=== PATIENT | female | born 1970 | race Caucasian/White ===

== ENCOUNTER 2021-06-26 12:13 | Emergency (ER) | payer OTHER ==
[~2021-06-26] VITALS: Ht 157.5 cm; Wt 90.7 kg
--- NOTE | ~2021-06-26 | EMS ---
[address] [address] EMS Patient Care Report Name: KO CARTER Room #: DEP ROCAEL Romero#: [id number] Admission: 06/26/21 Attend Phys: Discharge: 06/26/21 Date of : 74 Report #: [id number] THIS REPORT FOR: //name// Report Transmitted: 06/26/2021 23:02 EMS Care Summary [facility] MED-ACT Incident [id number] @ 06/26/2021 11:37 Incident Location [address] [place] [address] Patient KO CARTER Female, 51 Years 1970 Patient Address [address] [place] [address] Patient History Anxiety, Patient Allergies Amoxicillin, Patient Medications Wellbutrin, Lexapro, Chief Complaint chest pain that worsens w/ respiration Disposition Transported No Lights/[place] Dis[place] Reason Chest Pain (Non-Traumatic) Transported To [facility] Narrative dispatch: medic [id number] dispatched to a an assisted living facility for a report of a staff member suffering from chest pain. medic [id number] immediately responded to the scene without delay. [address] [address] EMS Patient Care Report Name: KO CARTER [facility] [id number] Admission: 06/26/21 Attend Phys: Discharge: 06/26/21 Date of : 74 Report #: [id number] chief complaint: upon arrival to the scene ems enters the facility to find a 51 y/o female pt seated upright in a chair. pt alert, answering questions. pt complains of chest pain. history of present illness: pt states pain began on her drive to work approximately 2 hours prior. pt states pain continually worsened prompting her to summoned ems. pt describes the pain as sharp and rates it 10/10. pt states pain begins midclavicular at approximately the 5th intercostal space and radiates upward in to her neck and down her left arm. pt states pain worsens with respiration and movement. pt denies any trauma or injury to area. assessment: als assessment performed, findings noted within report. rendered treatment: assessment, vital signs, ekg, 12 lead ekg, vascular access, 50mcg fentanyl, transport. 324mg asa administered by staff prior to ems arrival. transport: pt requests transport to a [facility]. pt stood with assistance and sat on stretcher. stretcher transferred to ambulance, lifted, and secured. pt continuously monitored through out transport for changes in condition. upon arrival to the receiving facility pt self transferred to er bed. verbal report given to attending staff and transfer of care complete. Initial Vitals @11:51P: 82, @11:57P: 78, @12:02P: 81,SpO2: 92, @11:53P: 87, @11:47P: 91,SpO2: 95, @12:06P: 77,SpO2: 94, @11:51P: 81,R: 20,BP: 121/73,Pain: 10/10,GCS: 15,SpO2: 94,Revised Trauma: 12,[place] Suspected: false @12:05P: 92,R: 20,BP: 119/89,Pain: 10/10,GCS: 15,SpO2: 93,Revised Trauma: 12,[place] Suspected: false @11:48P: 92,R: 20,BP: 123/102,Pain: 10/10,GCS: 15,Temp: 97.8F,SpO2: 95,Revised Trauma: 12, Impression Chest pain on breathing Procedures @11:55 Fentanyl - 50 Micrograms (mcg) - Intravenous (IV) Response: Unchanged @12:02 Surgical Mask on Patient Response: Unchanged @PTAAspirin - 324 Milligrams (mg) - Oral Response: Unchanged @11:53 IV Therapy - Saline Lock 10cc (20 ga) Site: Hand-Left Response: [facility] [address] [place] [address] EMS Patient Care Report Name: KO CARTER Room #: DEP ROCAEL Romero#: [id number] Admission: 06/26/21 Attend Phys: Discharge: 06/26/21 Date of : 74 Report #: [id number] UnchangedSucceeded @11:51 12-Lead ECG Response: UnchangedSucceeded 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,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 - 324 Milligrams (mg) - Oral,Response: Unchanged 11:35,Call Received 11:35,Psap Call 11:37,Dispatched 11:37,En Route 11:42,On Scene 11:44,At Patient 11:47,BP: / M,PULSE: 91,RR: R,SPO2: 95 Ox,ETCO2: ,BG: ,PAIN: ,GCS: , 11:48,BP: 123/102 M,PULSE: 92,RR: 20 R,SPO2: 95 Ox,ETCO2: ,BG: ,PAIN: 10,GCS: 15, 11:51,BP: 121/73 M,PULSE: 81,RR: 20 R,SPO2: 94 Ox,ETCO2: ,BG: ,PAIN: 10,GCS: 15, 11:51,12-Lead ECG,Response: UnchangedSucceeded, 11:51,BP: / M,PULSE: 82,RR: R,SPO2: Ox,ETCO2: ,BG: ,PAIN: ,GCS: , 11:53,IV Therapy - Saline Lock 10cc 20 ga Site: Hand-Left,Response: UnchangedSucceeded, 11:53,BP: / M,PULSE: 87,RR: R,SPO2: Ox,ETCO2: ,BG: ,PAIN: ,GCS: , 11:55,Fentanyl - 50 Micrograms (mcg) - Intravenous (IV),Response: Unchanged 11:57,BP: / M,PULSE: 78,RR: R,SPO2: Ox,ETCO2: ,BG: ,PAIN: ,GCS: , 11:57,Depart Scene 12:02,Surgical Mask on Patient,Response: Unchanged 12:02,BP: / M,PULSE: 81,RR: R,SPO2: 92 Ox,ETCO2: ,BG: ,PAIN: ,GCS: , 12:05,BP: 119/89 M,PULSE: 92,RR: 20 R,SPO2: 93 Ox,ETCO2: ,BG: ,PAIN: 10,GCS: 15, 12:06,BP: / M,PULSE: 77,RR: R,SPO2: 94 Ox,ETCO2: ,BG: ,PAIN: ,GCS: , 12:08,At Destination 12:23,Call Closed Disclaimer v1.1 Copyright 2020 [employer] This EMS Care Summary contains data elements from the applicable legal record (which may be displayed differently). It is designed to provide pertinent information for the following purposes: continuity of care, clinical quality, and state data reporting. The complete legal record is available to ED staff and administrators of the receiving hospital in ES's Patient Tracker. All data is provided "as is."
--- NOTE | ~2021-06-26 | EMS ---
[address] [address] EMS Patient Care Report Name: KO CARTER Room #: DEP ROCAEL Romero#: [id number] Admission: 06/26/21 Attend Phys: Discharge: 06/26/21 Date of : 74 Report #: [id number] THIS REPORT FOR: //name// Report Transmitted: 06/26/2021 21:58 EMS Care Summary [facility] MED-ACT Incident [id number] @ 06/26/2021 11:37 Incident Location [address] [place] [address] Patient KO CARTER Female, 51 Years 1970 Patient Address [address] [place], [place] [id number] Patient History Anxiety, Patient Allergies Amoxicillin, Patient Medications Wellbutrin, Lexapro, Chief Complaint chest pain that worsens w/ respiration Disposition Transported No Lights/[place] Dispatch Reason Chest Pain (Non-Traumatic) Transported To [facility] Narrative dispatch: medic [id number] dispatched to a an assisted living facility for a report of a staff member suffering from chest pain. medic 1134 immediately responded to the scene without delay. [address] [address] EMS Patient Care Report Name: KO CARTER Room #: [facility]P [facility] [id number] Admission: 06/26/21 Attend Phys: Discharge: 06/26/21 Date of : 74 Report #: [id number] chief complaint: upon arrival to the scene ems enters the facility to find a 51 y/o female pt seated upright in a chair. pt alert, answering questions. pt complains of chest pain. history of present illness: pt states pain began on her drive to work approximately 2 hours prior. pt states pain continually worsened prompting her to summoned ems. pt describes the pain as sharp and rates it 10/10. pt states pain begins midclavicular at approximately the 5th intercostal space and radiates upward in to her neck and down her left arm. pt states pain worsens with respiration and movement. pt denies any trauma or injury to area. assessment: als assessment performed, findings noted within report. rendered treatment: assessment, vital signs, ekg, 12 lead ekg, vascular access, 50mcg fentanyl, transport. 324mg asa administered by staff prior to ems arrival. transport: pt requests transport to a [facility]. pt stood with assistance and sat on stretcher. stretcher transferred to ambulance, lifted, and secured. pt continuously monitored through out transport for changes in condition. upon arrival to the receiving facility pt self transferred to er bed. verbal report given to attending staff and transfer of care complete. Initial Vitals @11:51P: 82, @11:57P: 78, @12:02P: 81,SpO2: 92, @11:53P: 87, @11:47P: 91,SpO2: 95, @12:06P: 77,SpO2: 94, @11:51P: 81,R: 20,BP: 121/73,Pain: 10/10,GCS: 15,SpO2: 94,Revised Trauma: 12,[place] Suspected: false @12:05P: 92,R: 20,BP: 119/89,Pain: 10/10,GCS: 15,SpO2: 93,Revised Trauma: 12,[place] Suspected: false @11:48P: 92,R: 20,BP: 123/102,Pain: 10/10,GCS: 15,Temp: 97.8F,SpO2: 95,Revised Trauma: 12, Impression Chest pain on breathing Procedures @11:55 Fentanyl - 50 Micrograms (mcg) - Intravenous (IV) Response: Unchanged @12:02 Surgical Mask on Patient Response: Unchanged @PTAAspirin - 324 Milligrams (mg) - Oral Response: Unchanged @11:53 IV Therapy - Saline Lock 10cc (20 ga) Site: Hand-Left Response: [facility] [address] [place] [address] EMS Patient Care Report Name: KO CARTER Room #: DEP ROCAEL Romero#: [id number] Admission: 06/26/21 Attend Phys: Discharge: 06/26/21 Date of : 74 Report #: [id number] UnchangedSucceeded @11:51 12-Lead ECG Response: UnchangedSucceeded Timeline 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,Aspirin - 324 Milligrams (mg) - Oral,Response: Unchanged 11:35,Call Received 11:35,Psap Call 11:37,Dispatched 11:37,En Route 11:42,On Scene 11:44,At Patient 11:47,BP: / M,PULSE: 91,RR: R,SPO2: 95 Ox,ETCO2: ,BG: ,PAIN: ,GCS: , 11:48,BP: 123/102 M,PULSE: 92,RR: 20 R,SPO2: 95 Ox,ETCO2: ,BG: ,PAIN: 10,GCS: 15, 11:51,BP: 121/73 M,PULSE: 81,RR: 20 R,SPO2: 94 Ox,ETCO2: ,BG: ,PAIN: 10,GCS: 15, 11:51,12-Lead ECG,Response: UnchangedSucceeded, 11:51,BP: / M,PULSE: 82,RR: R,SPO2: Ox,ETCO2: ,BG: ,PAIN: ,GCS: , 11:53,IV Therapy - Saline Lock 10cc 20 ga Site: Hand-Left,Response: UnchangedSucceeded, 11:53,BP: / M,PULSE: 87,RR: R,SPO2: Ox,ETCO2: ,BG: ,PAIN: ,GCS: , 11:55,Fentanyl - 50 Micrograms (mcg) - Intravenous (IV),Response: Unchanged 11:57,BP: / M,PULSE: 78,RR: R,SPO2: Ox,ETCO2: ,BG: ,PAIN: ,GCS: , 11:57,Depart Scene 12:02,Surgical Mask on Patient,Response: Unchanged 12:02,BP: / M,PULSE: 81,RR: R,SPO2: 92 Ox,ETCO2: ,BG: ,PAIN: ,GCS: , 12:05,BP: 119/89 M,PULSE: 92,RR: 20 R,SPO2: 93 Ox,ETCO2: ,BG: ,PAIN: 10,GCS: 15, 12:06,BP: / M,PULSE: 77,RR: R,SPO2: 94 Ox,ETCO2: ,BG: ,PAIN: ,GCS: , 12:08,At Destination 12:23,Call Closed Disclaimer v1.1 Copyright 2020 [employer] This EMS Care Summary contains data elements from the applicable legal record (which may be displayed differently). It is designed to provide pertinent information for the following purposes: continuity of care, clinical quality, and state data reporting. The complete legal record is available to ED staff and administrators of the receiving hospital in ES's Patient Tracker. All data is provided "as is."
[~2021-06-26 12:13] MED LIST: FIORICET 50-321 EACH PO; NAPROSYN500 MG PO
[2021-06-26] MEDS ORDERED: LEXAPRO 10 MG T10 M2 PO (12:44)
[2021-06-26] MEDS ORDERED: WELLBUTRIN SR150 MG PO (12:44)
[2021-06-26 12:53] LABS: ABSOLUTE NEUTROPHILS 7.2 thou/uL (1.4-8.2); BASOPHILS 0.4 % (0.0-2.0); EOSINOPHILS 2.8 % (0.0-3.0); HEMATOCRIT 44.5 % (37.0-47.0); LYMPHOCYTES 29.7 % (24.0-44.0); MCH 32.4 pg (26.0-34.0); MCHC 33.8 g/dL (28.0-37.0); MCV 95.9 fL (80.0-100.0); MONOCYTES 6.2 % (1.0-8.0); PLATELET COUNT 276 thou/uL (150-400); POLYS 60.9 % (36.0-66.0); RBC 4.64 mil/uL (4.20-5.00); RDW 13.9 % (10.5-14.5); WBC 11.8 thou/uL (4.0-11.0)
[2021-06-26 13:04] LABS: CALCIUM 8.8 mg/dL (8.5-10.1); POTASSIUM 3.7 mmol/L (3.5-5.1)
[2021-06-26 13:14] LABS: ALBUMIN 3.8 g/dL (3.4-5.0); TOTAL BILIRUBIN 0.3 mg/dL (0.2-1.0); TOTAL PROTEIN 7.2 g/dL (6.4-8.2)
[2021-06-26] MEDS ORDERED: IBUPROFEN 800800 M1 PO (14:43)
[2021-06-26 15:13] VITALS: BP 116/75
--- NOTE | 2021-06-28 07:17 | EKG ---
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 : 1970 Requested By: Sharon Mcgarry Order Number: [id number] MD: Sloan Villarreal Measurements Intervals [place] Rate: 76 P: 68 LA: 156 QRS: 50 QRSD: 85 T: 23 QT: 389 QTc: 438 Interpretive Statements Sinus rhythm Baseline wander in lead(s) V1 Compared to ECG 10/17/2007 18:22:58 Poor R-wave progression no longer present Electronically Signed On 06-28-2021 7:17:26 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
== END 2021-06-26 15:14 | disposition home or self-care (01) ==
LOC: ER 12:13
PROVIDERS: Physician Assistant
DX: R07.89 Other chest pain (principal); Z20.822 Contact with and (suspected) exposure to COVID-19; M94.0 Chondrocostal junction syndrome [Tietze]; R09.1 Pleurisy; G43.909 Migraine, unspecified, not intractable, without status migrainosus; Z98.890 Other specified postprocedural states; Z79.899 Other long term (current) drug therapy; Z88.1 Allergy status to other antibiotic agents

== ENCOUNTER → 2021-08-17 | Outpatient (CLI) | payer OTHER ==
[~2021-08-17] MED LIST changes: +IBUPROFEN 800800 M1 PO; +LEXAPRO 10 MG T10 M2 PO; +WELLBUTRIN SR150 MG PO
== END ==
LOC: CAT 09:50
PROVIDERS: ATTEND Internal Medicine
DX: J43.9 Emphysema, unspecified (principal); R91.8 Other nonspecific abnormal finding of lung field; R59.0 Localized enlarged lymph nodes